=== PATIENT | male | born 1955 | race Caucasian/White ===

== ENCOUNTER 2019-07-20 13:01 | Inpatient (IN) | payer MEDICARE ==
[~2019-07-20] VITALS: Ht 193 cm; Wt 89.8 kg
--- NOTE | 2019-07-20 07:15 | NUR ---
MEDICATION MANAGER NOTES PATIENT IS AWAKE, FAMILY AT BED SIDE. NO SOB OR DISCOMFORT NOTED AT THIS TIME. CALL LIGHT WITHIN REACH BED AT THE LOWEST POSITION LOCKED. ENDORSED TO HOUSECALLS NURSE NURSE FOR CARLOS ALBERTO. Addendum: 07/20/19 at 2119 by KLEVER MIN RN DISREGARD THE NOTE
--- NOTE | 2019-07-20 13:01 | NUR ---
BIB [facility] FROM HOME,C/O WEAKNESS,NOT EATING WITH DIARRHEA, PT AWAKE, ALERT, -SOB, NAD NOTED, PT ON MONITOR, VSS, PENDING MD ROCK
[2019-07-20 13:30] LABS: EOSINOPHILS % (AUTO) 0.1 % (0.0-6.0); HEMOGLOBIN 11.6 g/dL (13.5-17.5); LYMPHOCYTES # (AUTO) 0.6 /CMM (0.8-4.8)
[2019-07-20] MEDS ORDERED: IV NS 0.9% 1,000 ML BAG IV ONE (13:30)
[2019-07-20 13:33] LABS: BASOPHILS % (AUTO) 0.4 % (0.0-2.0); HEMATOCRIT 34 % (39-51); LYMPHOCYTES % (AUTO) 14.2 % (20.0-44.0); MEAN CORPUSCULAR HGB CONC 34 g/dl (31.0-36.0); MEAN CORPUSCULAR VOLUME 103 fL (80-96); MONOCYTES # (AUTO) 0.5 /CMM (0.1-1.30); MONOCYTES % (AUTO) 11.9 % (2.0-12.0); NEUTROPHILS # (AUTO) 2.9 /CMM (1.8-8.9); NEUTROPHILS % (AUTO) 73.4 % (43.0-81.0); PLATELET COUNT (AUTO) 177 /CMM (150-450); RED BLOOD CELL COUNT(AUTO) 3.27 MIL/uL (4.5-6.0)
[2019-07-20 13:43] LABS: BILIRUBIN,DIRECT 0.2 mg/dL (0.0-0.2); BILIRUBIN,TOTAL 0.4 mg/dL (0.2-1.0); CALCIUM, SERUM 7.2 mg/dL (8.5-10.1); TOTAL PROTEIN, SERUM 4.7 g/dL (6.4-8.2)
--- NOTE | 2019-07-20 13:45 | NUR ---
PAGED [facility].
[2019-07-20] MEDS ORDERED: TERA5CAP4 PO (13:50)
[2019-07-20] MEDS ORDERED: GABA-534 PO (13:50)
[2019-07-20] MEDS ORDERED: FURO-145 PO (13:50)
[2019-07-20] MEDS ORDERED: LORA-259 PO (13:50)
[2019-07-20 13:52] LABS: APPEARANCE,URINE Clear (CLEAR); BILIRUBIN,URINE Negative (NEGATIVE); BLOOD, URINE Negative Ery/uL (NEGATIVE); COLOR,URINE Yellow (YELLOW); KETONES,URINE 40 (NEGATIVE); LEUKOCYTE ESTERASE ,URINE Negative (NEGATIVE); NITRITE, URINE Negative (NEGATIVE); PH,URINE 7.5 (5.0-8.0); PROTEIN,URINE Negative (NEGATIVE); UGLUCOSE Negative (NEGATIVE); UROBILINOGEN,URINE 0.2 EU/dL (0.2)
[2019-07-20 13:56] LABS: CREATININE 0.1 mg/dL (0.6-1.3); POTASSIUM 3.2 mmol/L (3.5-5.1)
--- NOTE | 2019-07-20 14:00 | NUR ---
PAGED NURSING SUP FOR TELE BED.
[2019-07-20 14:01] LABS: BACTERIA,URINE Rare /HPF (None Seen); SQUAMOUS EPITHELIAL CELL,UR Few /HPF (None Seen)
[2019-07-20] MEDS ORDERED: ONDANSETRON HCL/PF 4 MG/2 ML VIAL IVP PRN (15:30)
[2019-07-20] MEDS ORDERED: Z GUARD REMEDY 2 OZ OINT TP PRN (15:30)
[2019-07-20] MEDS ORDERED: HYDROCODONE/APAP 5/325MG 1 EACH TABLET PO PRN (15:30)
[2019-07-20] MEDS ORDERED: ACETAMINOPHEN 325 MG TABLET PO PRN (15:30)
[2019-07-20] MEDS ORDERED: LORAZEPAM 1 MG TABLET PO PRN (15:30)
[2019-07-20] MEDS ORDERED: MAGNESIUM HYDROXIDE 30 ML UDC PO PRN (15:30)
[2019-07-20] MEDS ORDERED: MAG HYDROX/AL HYDROX/SIMETH 30 ML UDC PO PRN (15:30)
--- NOTE | 2019-07-20 15:34 | NUR ---
NURSING SUP GAVE TELE BED 120-2.
--- NOTE | 2019-07-20 16:21 | NUR ---
report given to dany levine for dick, pt transported to 1st floor
[2019-07-20] MEDS ORDERED: SODIUM CHLORIDE 3% IV ONE (16:30)
--- NOTE | 2019-07-20 17:00 | NUR ---
CONSTRUCTION COST ESTIMATOR NOTES RECEIVED PATIENT FROM ER, A/OX4 ON ROOM AIR. QUADRIPLEGIC, UNABLE TO MOVE. FAMILY AT BED SIDE. RIGHT AC # 20 PATENT. ON REGULAR DIET NO ISOLATION. PATIENT EXPRESSED HER WITH OF TO BE DNR DNI WHEN DR RAMOS AT BED SIDE. NO SOB OR DISCOMFORT NOTED AT THIS TIME. PATIENT DENIES ANY PAIN. BED AT THE LOWEST POSITION LOCKED. CALL LIGHT WITHIN REACH.
--- NOTE | 2019-07-20 17:15 | NUR ---
DIE MAKER APPRENTICE NOTES PATIENT IS AWAKE, FAMILY AT BED SIDE. NO SOB OR DISCOMFORT NOTED AT THIS TIME. CALL LIGHT WITHIN REACH BED AT THE LOWEST POSITION LOCKED. ENDORSED TO BAILER OPERATORS SUPERVISOR NURSE FOR CARLOS ALBERTO.
[2019-07-20 17:36] LABS: CREATININE 0.1 mg/dL (0.6-1.3); POTASSIUM 2.9 mmol/L (3.5-5.1)
[2019-07-20] MEDS: GABAPENTIN 300 MG CAPSULE PO SCH (18:16)
--- NOTE | 2019-07-20 18:46 | NUR ---
EDUCATION REVIEWER NOTES PATIENT WANTS TO BE TRANSFERRED TO [facility] AND DR RAMOS NOTIFIED AND AWARE.
--- NOTE | 2019-07-20 19:00 | NUR ---
received patient aler and orientated x4. speech spoken softly. Sister at the bedside, wants him to go to MD RAYNA Andonian made aware by the RN on viviana shift. juarez to drainage clear yellow urine.
[2019-07-20 20:00] VITALS: BP 103/60
--- NOTE | 2019-07-20 23:45 | NUR ---
call placed to MD PAUL ONEAL regarding K+2.9 SHOWED THE CHARGE NURSE AND SHE DOUBLE CHECKED TO SEE IF i OVER-LOOKED HE WAS GIVEN REPLAEMENT, SHE DID NOT SEE REPLACEMENT ORDERED. ORDER TO REPLACE k+ ORDERED AND GIVEN
[2019-07-21] VITALS: BP 100/59
[2019-07-21] MEDS ORDERED: POTASSIUM CHLORIDE 20 MEQ TAB.PRT.SR PO ONE
[2019-07-21 04:40] VITALS: BP 125/74
--- NOTE | 2019-07-21 05:55 | NUR ---
END OF SHIFT RN NOTES: from room 111-1 changed to room 106 d/t ptivate room requisted. Sister Maranda at the bedside and was great about answering questions. She wants to have him transfered to [facility], this is the hospital they are use to. Say shift nurse called MD barnhart and made him aware. Patient Mr. Carmichael refused to be turned so that I could get the transfer linen from under him, Maranda also stated DON'T TURN HIM, his skin is Okay, I will take responsiblity for breakdown. We have a good caregiver and his skin is all intact. Patient also stated no when suggest he be repositioned, and he is alert and orientated. His Heart rhythm is 2nd degree heart block. His HR when asleep is in the low 40's to low 50's, he is asymptomatic. when awake his heart rate low 70's. He is pale in color. During the night he c/o of "I can't breath so well," MD Pritchard called and chest xray ordered. K+ 2.9 replaced with po 40MEG ordered CMP for this AM 07/21. Arouse easily and alert when name spoken, but he does get angry when awake.montserrat from sleep
--- NOTE | 2019-07-21 08:00 | NUR ---
VISUAL PRESENTATION MANAGER OPENING NOTES RECEIVED A REPORT FROM PARAMJIT RN WHO RECEIVED THE REPORT FROM FABRIC CUTTER. RECEIVED PT ASLEEP ON BED, EASILY AROUSABLE, MUMBLES WHEN TALKING THEN GO TO BACK TO SLEEP. HOB ELEVATED, O2 AT 2LPM DUE TO EPISODES OF SOB LAST NIGHT. RESPIRATION EVEN AND NO LABORED WHEN ASSESSED. ABDOMEN SOFT AND NON DISTENDED WITH ACTIVE BOWEL SOUNDS, FC IN PLACE WITH YELLOW URINE. SKIN WARM TO TOUCH AND DRY. BLE +3, BUE +1-2. ELEVATED EXTREMITIES WITH PT COMFORT. DENIES PAIN AN DISCOMFORT. EVELINA CAREGIVER ON BED SIDE. IV SITE AT RIGHT AC PATENT IN FLUSHING, NO S/SX ON INFILTRATION. TELE MONITOR SHOWS SR 78. ALL CONCERNS ADDRESSED AT THIS TIME. WILL CONTINUE TO MONITOR CARE.
[2019-07-21] MEDS: GABAPENTIN 300 MG CAPSULE PO SCH ×2 (08:55→17:30)
--- NOTE | 2019-07-21 09:54 | NUR ---
EXTRUSION PRESS OPERATOR NOTES SISTER KATHERYN ON BEDSIDE, NO CONCERNS ADDRESSED AT THIS TIME. PT A/O X 2-3, AWAKE AND VERBALLY RESPONSIVE. PT EATING BREAKFAST WITH CAREGIVER ON BEDSIDE. TO CONTINUE TO MONITOR.
--- NOTE | 2019-07-21 11:15 | NUR ---
EDGE STRIPPER NOTES PT SEEN BY DR. RAMOS, FAMILY ON BEDSIDE. KCL TO ADMINISTER ORDERED VIA IV PT PREFERRED. PT AND FAMILY TALKED ABOUT HOSPICE, FAMILY HAS APPOINTMENT WITH [facility] ON 07/22/2019 AT 10 AM. ALL CONCERNS ADDRESSED DURING MD VISIT
[2019-07-21] MEDS ORDERED: BUMETANIDE INJ 3 MG in IV NS 0.9% 48 ML IV ONE (11:30)
[2019-07-21 11:49] LABS: BASOPHILS % (AUTO) 0.4 % (0.0-2.0); EOSINOPHILS % (AUTO) 0.1 % (0.0-6.0); HEMATOCRIT 34 % (39-51); HEMOGLOBIN 11.8 g/dL (13.5-17.5); LYMPHOCYTES # (AUTO) 0.5 /CMM (0.8-4.8); LYMPHOCYTES % (AUTO) 11.4 % (20.0-44.0); MEAN CORPUSCULAR HGB CONC 35 g/dl (31.0-36.0); MEAN CORPUSCULAR VOLUME 103 fL (80-96); MONOCYTES # (AUTO) 0.5 /CMM (0.1-1.30); MONOCYTES % (AUTO) 11.6 % (2.0-12.0); NEUTROPHILS # (AUTO) 3.2 /CMM (1.8-8.9); NEUTROPHILS % (AUTO) 76.5 % (43.0-81.0); PLATELET COUNT (AUTO) 207 /CMM (150-450); RED BLOOD CELL COUNT(AUTO) 3.27 MIL/uL (4.5-6.0); WHITE BLOOD COUNT (AUTO) 4.2 K/uL (4.3-11.0)
[2019-07-21] MEDS: POTASSIUM CL. PREMIX PERIPHER. 50 ML IV SCH ×8 (12:03→19:03)
[2019-07-21 12:59] LABS: POTASSIUM 3.6 mmol/L (3.5-5.1)
--- NOTE | 2019-07-21 13:00 | NUR ---
FISHING FLOATS ASSEMBLER NOTES RECEIVED CRITICAL LEVEL OF SODIUM OF 113. DR. RACHEL FRY Addendum: 07/21/19 at 1301 by STEPHEN MATOS RN FISHING FLOATS ASSEMBLER NOTES RECEIVED CRITICAL LEVEL OF SODIUM OF 113 FROM LAB, REPORTED BY EDGAR. DR. RACHEL FRY
[2019-07-21 13:01] LABS: CREATININE 0.1 mg/dL (0.6-1.3); PHOSPHORUS 2.5 mg/dL (2.5-4.9)
[2019-07-21 13:03] LABS: MAGNESIUM 1.1 mg/dL (1.8-2.4)
--- NOTE | 2019-07-21 13:05 | NUR ---
BIOLOGICAL SCIENTIST NOTES RECEIVED 2 REPORT NOW CHRISTOFER FROM LAB DUE TO CRITICAL LEVEL OF MG 1.[address] RAMOS PAGED VIA [employer]. WAITING FOR NEW ORDER
--- NOTE | 2019-07-21 13:20 | NUR ---
CONTRACTING OFFICER NOTES DR. RAMOS CALLED BACK WITH NEW ORDER FOR MAGNESIUM OF 4 BAGS, DR. RAMOS ABLE TO TALK TO DR. CHAPMAN AND AGREED WITH THE NEW ORDER. NO NEW ORDER REGARDING NA 113 SINCE POTASSIUM IS BEING ADMINISTERED. ORDERS READ BACK, NOTED AND CARRIED OUT. PT NOTIFIED WITH RESULTS.
[2019-07-21] MEDS ORDERED: Magnesium 1GM/D5W 100ML PREMIX PIGGYBACK IV ONE (14:00)
[2019-07-21] MEDS: Magnesium 1GM/D5W 100ML PREMIX 100 ML IV SCH ×4 (14:00→17:30)
[2019-07-21 16:00] VITALS: BP 118/71
--- NOTE | 2019-07-21 18:40 | NUR ---
SAFETY COMPLIANCE SPECIALIST CLOSING NOTES PT A/O X3, RESPONSIVE TO ALL STIMULI. FAMILY ON BEDSIDE. RESPIRATION EVEN AND UNLABORED WITH NO ACUTE RESPIRATORY DISTRESS, WITH O2 AT 3LPM DUE TO C/O SOB. ABD SOFT AND NON DISTENDED WITH ACTIVE BOWEL SOUNDS, LBM TODAY SMALL. FC 2900 ML WITH YELLOW URINE OUTPUT. SKIN WARM TO TOUCH AND DRY, BED BATH DONE TODAY, NO OPEN SKIN BREAKDOWN, BLE +3, BUE +2 PITTING EDEMA, BLE WITH REDNESS AND SMALL BLISTERS UNOPENED, SCROTAL SWELLING PRESENT, DECLINED PICTURES. DENIES PAIN AND DISCOMFORT. IV SITE AT RIGHT AC #20 RUNNING POTASSIUM, LEFT UPPER ARM MIDLINE #18 RUNNING MAGNESIUM, BOTH SITE PATENT IN FLUSHING, NO S/SX OF INFILTRATION. TELE MONITOR SHOWS SR 78 WITH AV BLOCK. ALL CONCERNS ATTENDED. CALL LIGHT WITHIN REACHED. ENDORSED PT CARE TO NEXT SHIFT.
--- NOTE | 2019-07-21 19:05 | NUR ---
VISITOR SERVICES TECHNICIAN NOTES RECEIVED PT IN BED AWAKE WITH FAMILY AT BEDSIDE. PT A/O X3. RESPIRATIONS EVEN AND UNLABORED WITH NO S/S OF ACUTE DISTRESS OR SOB NOTED AT THIS TIME. NO COMPLAINTS OF PAIN AT THIS TIME. PT NOTED WITH RAC #20G SL AND THUAN MIDLINE SL. SAFETY MEASURES IN PLACE WITH BED IN LOWEST LOCKED POSITION WITH SIDE RAILS UP X2. CALL LIGHT WITHIN REACH. WILL CONTINUE TO MONITOR.
[2019-07-21 20:00] VITALS: BP 93/57
[2019-07-21 22:27] LABS: URINE SODIUM, RANDOM 88 mmol/l (40-220)
[2019-07-21 22:52] LABS: OSMOLALITY,URINE 238 mOS/kg (340-1090)
[2019-07-22] VITALS: BP_SYST 103; BP_SYST 93; BP_DIAS 60; BP_DIAS 69
[2019-07-22] MEDS: ZOLPIDEM TARTRATE 5 MG TABLET PO PRN (00:57)
[2019-07-22 04:00] VITALS: BP 105/69
[2019-07-22 06:30] LABS: BASOPHILS % (AUTO) 0.1 % (0.0-2.0); HEMATOCRIT 33 % (39-51); HEMOGLOBIN 11.5 g/dL (13.5-17.5); LYMPHOCYTES # (AUTO) 0.5 /CMM (0.8-4.8); LYMPHOCYTES % (AUTO) 10.5 % (20.0-44.0); MEAN CORPUSCULAR HGB CONC 35 g/dl (31.0-36.0); MEAN CORPUSCULAR VOLUME 103 fL (80-96); MONOCYTES # (AUTO) 0.4 /CMM (0.1-1.30); MONOCYTES % (AUTO) 9.1 % (2.0-12.0); NEUTROPHILS # (AUTO) 3.8 /CMM (1.8-8.9); NEUTROPHILS % (AUTO) 80.3 % (43.0-81.0); PLATELET COUNT (AUTO) 230 /CMM (150-450); RED BLOOD CELL COUNT(AUTO) 3.22 MIL/uL (4.5-6.0); WHITE BLOOD COUNT (AUTO) 4.8 K/uL (4.3-11.0)
--- NOTE | 2019-07-22 06:45 | NUR ---
CORRECTIONAL NURSE NOTES PT IN BED AWAKE WITH CAREGIVER AT BEDSIDE. PT A/O X3. RESPIRATIONS EVEN AND UNLABORED WITH NO S/S OF ACUTE DISTRESS OR SOB NOTED AT THIS TIME. PT KEPT CLEAN, DRY, AND COMFORTABLE. NO COMPLAINTS OF PAIN AT THIS TIME. PT NOTED WITH RAC #20G SL AND THUAN MIDLINE SL. PT TURNED Q2 HOURS THROUGHOUT SHIFT. SAFETY MEASURES IN PLACE WITH BED IN LOWEST LOCKED POSITION WITH SIDE RAILS UP X2. CALL LIGHT WITHIN REACH. WILL ENDORSE TO ONCOMING NURSE FOR CARLOS ALBERTO.
[2019-07-22 06:47] LABS: CREATININE 0.1 mg/dL (0.6-1.3); MAGNESIUM 1.9 mg/dL (1.8-2.4); PHOSPHORUS 2.2 mg/dL (2.5-4.9); POTASSIUM 3.9 mmol/L (3.5-5.1)
[2019-07-22 06:51] LABS: THYROID STIMULATING HORMONE 1.849 uIU/mL (0.358-3.74); URIC ACID 1.5 mg/dL (2.6-7.2)
--- NOTE | 2019-07-22 07:09 | NUR ---
CUPOLA MECHANIC NOTES PT NOTED WITH CRITICAL LAB VALUE FOR NA AND CL. ENDORSED TO ONCOMING NURSE.
--- NOTE | 2019-07-22 07:30 | NUR ---
BANQUET SERVER ON CALL OPENING NOTES RECEIVED PATIENT IN STABLE CONDITION, RESTING IN BED. PATIENT IS ON OXYGEN, 2L VIA NC. ON TELE MONITOR, 1ST DEGREE/2ND DEGREE HRT BLOCK ON THE MONITOR. CODE STATUS DNR/DNI. QUADRIPLEGIC DUE TO A SURFING ACCIDENT ACCORDING TO THE HEATER ENGINEER HELPER NURSE. NO ISOLATION IS OBSERVED. PATIENT HAS A HISTORY OF CDIF ON 07/19 ACCORDING TO HEATER ENGINEER HELPER NURSE. UNABLE TO FIND ANYTHING IN THE CHARTS REGARDING THAT. NOTIFIED CHARGE NURSE, WILL ORDER ISOLATION CART FOR THE ROOM JUST IN CASE. WILL MONITOR FOR DIARRHEA. CAREGIVER IS AT BEDSIDE. SAFETY MAINTAINED. CALL LIGHT WITHIN REACH. WILL CONTINUE TO MONITOR.
[2019-07-22 08:00] VITALS: BP 101/66
[2019-07-22] MEDS: GABAPENTIN 300 MG CAPSULE PO SCH ×2 (10:06→17:00)
[2019-07-22] MEDS ORDERED: BUMETANIDE INJ 3 MG in IV NS 0.9% 48 ML IV ONE (11:00)
[2019-07-22 12:00] VITALS: BP 116/74
[2019-07-22] MEDS ORDERED: K PHOS NEUTRAL 250 MG TABLET PO ONE (12:00)
[2019-07-22 14:33] LABS: URINE SODIUM, RANDOM 68 mmol/l (40-220)
[2019-07-22 14:43] LABS: OSMOLALITY,URINE 202 mOS/kg (340-1090)
[2019-07-22 16:00] VITALS: BP 93/61
--- NOTE | 2019-07-22 19:25 | NUR ---
TERRAZZO FINISHER HELPER CLOSING NOTES PATIENT IN STABLE CONDITION, NO ACUTE CHANGES TO PATIENT CONDITION DURING MY SHIFT. ALL PATIENT NEEDS MET, NO SIGNS AND SYMPTOMS OF DISTRESS NOTED. VITAL SIGNS STABLE. NO CHANGES ON THE TELE MONITOR. SAFETY MAINTAINED, CALL LIGHT WITHIN REACH, ENDORSED TO SUSTAINABLE DESIGN COORDINATOR NURSE TO CONTINUE CARE.
[2019-07-22 20:00] VITALS: BP 106/52
--- NOTE | 2019-07-22 20:00 | NUR ---
RN NOTE PT ALERT AND ORIENTED X 3. OFFERED TO TURN AND REPOSITION PT AND CHANGE LINENS. PT STRONGLY REFUSED TO BE REPOSITIONED AND TO HAVE FULL SKIN ASSESSMENT TO BE DONE. EXPLAINED RISKS AND ADVANTAGES, PT STILL STRONGLY REFUSED. CAREGIVER AT BEDSIDE. WILL OFFER AGAIN.
[2019-07-23] VITALS: BP 93/60
--- NOTE | 2019-07-23 00:44 | NUR ---
0044 FINISHING AND SHIPPING SUPERVISOR MADE AWARE OF PATIENT'S EPISODE OF HR GOING TO 200S WITH ORDER FOR STAT EKG. PATIENT IN NO APPARENT DISTRESS. SLEEPING WITH FAMILY MEMBER AT BEDSIDE. BP 107/56, HR 90S.
--- NOTE | 2019-07-23 01:23 | NUR ---
0123 DANA CARRIZALES MADE AWARE OF STAT EKG RESULT ACCELERATED JUNCTIONAL RHYTHM. NO NEW ORDER.
[2019-07-23] MEDS: ZOLPIDEM TARTRATE 5 MG TABLET PO PRN (02:36)
[2019-07-23 04:00] VITALS: BP 106/71
[2019-07-23 06:19] LABS: BASOPHILS % (AUTO) 0.2 % (0.0-2.0); HEMATOCRIT 39 % (39-51); HEMOGLOBIN 13.7 g/dL (13.5-17.5); LYMPHOCYTES # (AUTO) 0.6 /CMM (0.8-4.8); LYMPHOCYTES % (AUTO) 6.9 % (20.0-44.0); MEAN CORPUSCULAR HGB CONC 35 g/dl (31.0-36.0); MEAN CORPUSCULAR VOLUME 102 fL (80-96); MONOCYTES # (AUTO) 0.8 /CMM (0.1-1.30); MONOCYTES % (AUTO) 9.6 % (2.0-12.0); NEUTROPHILS # (AUTO) 6.9 /CMM (1.8-8.9); NEUTROPHILS % (AUTO) 83.3 % (43.0-81.0); PLATELET COUNT (AUTO) 293 /CMM (150-450); RED BLOOD CELL COUNT(AUTO) 3.79 MIL/uL (4.5-6.0); WHITE BLOOD COUNT (AUTO) 8.3 K/uL (4.3-11.0)
--- NOTE | 2019-07-23 07:24 | NUR ---
RN CLOSING NOTE PT IN BED AWAKE AND ALERT X 3 IN SEMI NAGEL'S POSITION. NO INDICATIONS OF ACUTE DISTRESS. PT DENIES PAIN OR DISCOMFORT. ON TELE MONITOR. ON 2 L OF O2 VIA NC AND TOLERATING WELL. WITH DOZIER CATHETER PATENT AND IN PLACE WHILE DRAINING CLEAR YELLOW URINE. PT KEPT CLEAN AND COMFORTABLE. CAREGIVER AT BEDSIDE. ON 900ML OF FLUID RESTRICTION AND EDUCATED PT AND CAREGIVER WHO VERBALIZED UNDERSTANDING. PT IS PENDING WOUND CONSULT.CALL LIGHT WITHIN REACH. SAFETY MEASURES IN PLACE. ALL NEEDS MET AND ATTENDED TO. ENDORSED TO MORNING SHIFT.
--- NOTE | 2019-07-23 07:30 | NUR ---
RN OPENING NOTES RECEIVED PATIENT FROM STOPPER MAKER NURSE. NO ACUTE CHANGES TO PATIENT CONDITION THROUGH THE NIGHT. PATIENT IS AO X3, ON TELE MONITOR SR, PVC AND 1ST DEGREE AV BLOCK. PATIENT IS ON 2L OXYGEN VIA NC, TOLERATING WELL, SATURATING WELL. SACK CLEANER IS AT BED SIDE. ALL PATIENT NEEDS MET. VITAL SIGNS STABLE. IS AWARE OF CRITICALLY LOW LAB RESULTS. SAFETY MAINTAINED, CALL LIGHT WITHIN REACH, WILL CONTINUE TO MONITOR CLOSELY.
[2019-07-23 08:00] VITALS: BP 106/60
[2019-07-23] MEDS ORDERED: IV Sodium Chloride 3% 500 ML 500 ML IV ONE (08:00)
[2019-07-23] MEDS ORDERED: TERAZOSIN HCL 5 MG CAPSULE PO SCH (09:00)
[2019-07-23] MEDS ORDERED: CLOTRIMAZOLE 1% 15 GM TUBE TP SCH (09:00)
--- NOTE | 2019-07-23 09:03 | NUR ---
WOUND CARE CONSULT: PT PRESENTS WITH MULTIPLE SKIN ISSUES INCLUDING SACRAL SCARRING/SACRAL DIMPLE, RASH TO ABDOMINAL/GROIN FOLDS, PERINEUM AND BUTTOCKS WELL PROFOUND GENERALIZED EDEMA WITH SOME WEEPING, DRY WOUNDS TO TOES, LEFT LOWER LEG WOUND AND MULTIPLE AREAS OF SCARRING/DISCOLORATION, PRESENT ON ADMISSION. PT PREVIOUSLY REFUSED SKIN ASSESSMENT AND PHOTOS PER PT CAREGIVER AT BEDSIDE. RECOMMEND DPM CONSULT. RECOMMENDATIONS MADE FOR SKIN PROTECTION AND SKIN CARE. DISCUSSED WITH NURSING STAFF. FIRST STEP LOW AIRLOSS MATTRESS ORDERED. WILL SEE PRN. COWART IN AGREEMENT WITH PLAN OF CARE. CURRENT CARIN SCORE IS 12. PT IS QUADRIPLEGIC. Addendum: 07/23/19 at 904 by BRYANT GRUBBS Amended: Links added. Addendum: 07/23/19 at [address] TRAORE NOTIFIED OF DPM CONSULT REQUEST.
[2019-07-23] MEDS: GABAPENTIN 300 MG CAPSULE PO SCH (09:12)
[2019-07-23 09:19] LABS: CALCIUM, SERUM 7.6 mg/dL (8.5-10.1); CREATININE 0.4 mg/dL (0.6-1.3)
[2019-07-23 12:00] VITALS: BP 88/52
[2019-07-23] MEDS ORDERED: DESMOPRESSIN 4 MCG/ML AMPUL SQ SCH (12:00)
--- NOTE | 2019-07-23 12:00 | NUR ---
PATIENT FAMILY SIGNED THE AMA FORM, PATIENT UNABLE TO SIGN DUE TO QUADRIPLEGIA, PT CONFIRMED THAT HE WANTS TO LEAVE AMA. PATIENT WANTED TO BE TRANSFERRED TO [facility], BUT NO BEDS AVAILABLE AT THIS TIME. FAMILY WILL ARRANGE FOR AMBULANCE TO COME EXECUTIVE DIRECTOR OF NURSING THE PATIENT. EXECUTIVE DIRECTOR OF NURSING SCHEDULED FOR 230. ASKED DR RAMOS TO LEAVE THE MID LINE INTACT BEFORE DISCHARGE, DR ONEAL. TOLD TO CONTINUE RUNNING THE 3% NS UNTIL THE AMBULANCE ARRIVES. WILL FOLLOW ORDERS.
--- NOTE | 2019-07-23 12:00 | NUR ---
DID NOT GIVE MED BECAUSE PATIENT SIGNED THE AMA FORM.
--- NOTE | 2019-07-23 13:38 | NUR ---
DISCHARGE INSTRUCTIONS PROVIDED TO PATIENT. INSTRUCTED TO CONTACT 911 IN CASE OF AN EMERGENCY. DISCHARGE PAPERWORK WAS ALSO PROVIDED. PATIENT IS LEAVING AMA, ALL FORMS SIGNED.
[2019-07-23 16:00] VITALS: BP 103/63
--- NOTE | 2019-07-23 19:55 | NUR ---
PATIENT WAS PICKED UP BY AMBULANCE, ENDORSED TO TRANSPORT THAT PATIENT IS UNSTABLE AND IS LEAVING AMA. AMA WAS SIGNED BY THE PATIENTS FAMILY AND A COPY WAS PROVIDED TO THE TRANSPORT.
== END 2019-07-23 20:00 | disposition left against medical advice (07) | DRG 643 ==
LOC: ER 13:06 → TELE1 15:43 → TELE-TD 22:29 → TELE1 07-21 00:22
PROVIDERS: ADMIT Family Medicine; ATTEND Family Medicine
PROC: 05H933Z Insertion of Infusion Device into Right Brachial Vein, Percutaneous Approach (ICD-10-PCS; principal; 2019-07-21)
DX: E22.2 Syndrome of inappropriate secretion of antidiuretic hormone (principal); G82.50 Quadriplegia, unspecified; E43 Unspecified severe protein-calorie malnutrition; G93.40 Encephalopathy, unspecified; J98.11 Atelectasis; E87.70 Fluid overload, unspecified; E86.0 Dehydration; Z66 Do not resuscitate; E83.42 Hypomagnesemia; Z98.1 Arthrodesis status; Z80.3 Family history of malignant neoplasm of breast; Z79.899 Other long term (current) drug therapy; Z88.2 Allergy status to sulfonamides; Z91.040 Latex allergy status; D63.8 Anemia in other chronic diseases classified elsewhere; E87.6 Hypokalemia; I50.9 Heart failure, unspecified
CPT/HCPCS: 36415; 71045-TC; 80048-TC; 80061-TC; 80076-TC; 81000-TC; 83735-TC; 83935-TC; 84100-TC; 84300-TC; 84443-TC; 84484-TC; 84550-TC; 85025-TC; 87081-TC; 94799-TC; A4216; A6253; G0378; J2405; J2597; J3475; J3480; J3490; J7050